=== PATIENT | female | born 2000 | race Caucasian/White ===

== ENCOUNTER 2021-01-02 10:19 | Emergency (ER) | payer OTHER, SELFPAY ==
[2021-01-02 10:33] VITALS: BP 131/75; PULSE 90; RESP 16; TEMP 36.9; O2SAT 100
--- NOTE | 2021-01-02 10:46 | ED.URI ---
HPI - URI/Sore Throat General Chief Complaint: Upper Respiratory Infection Stated Complaint: Runny Nose,Cough,Ear Pain Time Seen by Provider: 01/02/21 10:46 Source: patient, RN notes reviewed and old records reviewed Mode of arrival: ambulatory Limitations: no limitations History of Present Illness HPI Narrative: 20 year old female who presents to [facility] care with complaints of 3-5 day history of cough, stuffy nose and ears feeling full. Patient reports that cough started on Tuesday with stuffy nose and ear fullness not starting till Tuesday, denies any shortness of breath or complaints of wheezing. Patient does have history of exercise induced asthma and seasonal allergies. Patient states that she has been taking her Singulair and Dilma with symptoms not improving which usually will after a couple of days of medications. She reports that she has also been taking DayQuil and NyQuil, has no fevers chills or sweats, has had COVID vaccinations, MD elicited complaint: cough, rhinorrhea and other (ears feel full) Pertinent past history: asthma (exercise induced) and seasonal allergies Related Data Home Medications Medication Instructions Recorded Confirmed Dilam 01/02/21 Singulair 01/02/21 Allergies Allergy/AdvReac Type Severity Reaction Status Date / Time No Known Allergies Allergy Uncoded 12/15/18 14:11 Review of Systems Review of Systems: CONSTITUTIONAL: Denies fever, chills, or sweats. EYES: Denies visual changes, redness, or discharge. ENT: Positive for rhinorrhea, congestion, no sore throat, positive fullness to ears. CARDIOVASCULAR: Denies chest pain, palpitations, or edema. RESPIRATORY: Positive for cough or dyspnea. GASTROINTESTINAL: Denies abdominal pain, nausea, vomiting, or diarrhea. GENITOURINARY: Denies dysuria or hematuria. SKIN: Denies rash or itching. MUSCULOSKELETAL: Denies back pain, joint pain, or myalgia. NEUROLOGIC: Denies headache, numbness, or weakness. PSYCHIATRIC: Denies anxiety or depression. [facility] Past Medical History Medical History (Updated 01/02/21 @ 19:08 by Zita Disla NP) Exercise-induced asthma Seasonal allergies Surgical History Surgical History (Updated 01/02/21 @ 10:59 by Zita Disla NP) History of tonsillectomy and adenoidectomy Family History Family History (Updated 01/02/21 @ 11:00 by Zita Disla NP) Father Hypertension Mother Hx of migraines Social History Social History (Updated 01/02/21 @ 19:09 by Zita Disla NP) Smoking status: Never smoker Alcohol intake: never Substance use: never Living arrangements: with roommate(s) Gender identity (if verbalized by the patient): Female Comments At time of signature, agree with nursing past medical, surgical, social and family history. There is no relevant family history pertinent to the presenting complaint Exam Narrative: GENERAL: Well-appearing, well-nourished, and in no acute distress. HEAD: Normocephalic, atraumatic. EYES: PERRLA and EOMI. ENT: Nares red with swollen turbinates, clear rhinorrhea no epistaxis. Mucous membranes moist.TM's normal with good light reflex, throat red with no lesions or exudates, tonsils absent. post nasal drainage noted in back of throat. NECK: Supple. no lymphadenopathy CHEST: Clear to auscultation. No respiratory distress.SAO2 100% on room air HEART: Regular rate and rhythm. No murmur heard. Normal peripheral pulses. ABDOMEN: Soft, nontender, nondistended, normal active bowel sounds. EXTREMITIES: Normal range of motion. No edema. SKIN: Warm, dry, no rash. NEURO: No focal deficits. Alert and oriented x3. Course Vital Signs Vital signs: Vital Signs Temperature 36.9 C 01/02/21 10:33 Pulse Rate 90 01/02/21 10:33 Respiratory Rate 16 01/02/21 10:33 Blood Pressure 131/75 01/02/21 10:33 Pulse Oximetry 100 01/02/21 10:33 Temperature 36.9 C 01/02/21 10:33 Pulse Rate 90 01/02/21 10:33 Respiratory Rate 16
== END 2021-01-02 11:06 | disposition home or self-care (01) ==
PROVIDERS: Emergency Provider Registered Nurse
DX: J32.9 Chronic sinusitis, unspecified (principal); R05.9 Cough, unspecified; J45.990 Exercise induced bronchospasm
CPT/HCPCS: 99213; G0463